=== PATIENT | male | born 1940 | race Caucasian/White ===

== ENCOUNTER 2025-02-10 06:45 | Day surgery (SDC) | payer MEDICARE, OTHER ==
[~2025-02-10 06:45] MED LIST: Sodium Chloride 0.9% 10 ML Syringe FLUSH PRN; Sodium Chloride 0.9% 10 ML Syringe FLUSH SCH
[2025-02-10] MEDS ORDERED: propofoL 500 MG/50 ML 50 ML ONE (06:46)
[2025-02-10] MEDS ORDERED: fentaNYL 100 MCG/2 ML SDV ONE (06:47)
[2025-02-10] MEDS ORDERED: Phenylephrine 1% 10 MG/ML SDV ONE (06:48)
[2025-02-10] MEDS: Lactated Ringers 1,000 ML IV SCH (07:00)
[2025-02-10] MEDS: Morphine 8 MG, EPINEPHrine 0.3 MG, Cefuroxime 750 MG, Ketorolac 30 MG, Sodium Chloride ... PRN (09:25)
[2025-02-10] MEDS ORDERED: Ropivacaine 0.5% 5 MG/ML 30 ML SDV ONE (09:53)
[2025-02-10] MEDS ORDERED: Ondansetron 4 MG/2 ML SDV IVPUSH PRN (10:15)
[2025-02-10] MEDS: fentaNYL 100 MCG/2 ML SDV IVPUSH PRN (10:19)
[2025-02-10] MEDS: Acetaminophen/HYDROcodone 325-5 MG Tab PO SCH (11:39)
== END 2025-02-10 12:40 | disposition home or self-care (01) ==
LOC: JD.SDS 06:45
PROVIDERS: ATTEND Orthopaedic Surgery
DX: M17.11 Unilateral primary osteoarthritis, right knee (principal); G57.93 Unspecified mononeuropathy of bilateral lower limbs; I10 Essential (primary) hypertension; I25.10 Atherosclerotic heart disease of native coronary artery without angina pectoris; E78.00 Pure hypercholesterolemia, unspecified; Z88.8 Allergy status to other drugs, medicaments and biological substances; Z79.82 Long term (current) use of aspirin; Z79.899 Other long term (current) drug therapy
CPT/HCPCS: 0055T; 27447; 64447; 73560; 97116; 97161; 97530; A9270; C1713; C1776; J0169; J0690; J0697; J1885; J2272; J2371; J2704; J2795; J3010; J3373; J7120; 01402; 99100; J1171